=== PATIENT | female | born 1965 | race Caucasian/White ===

== ENCOUNTER 2019-06-27 13:59 | Emergency (ER) | payer BC ==
[2019-06-27 14:24] VITALS: BP 125/83; PULSE 86; TEMP 98.3; BMI 20.7
[2019-06-27] MEDS ORDERED: predniSONE 20 MG TABLET (UD) PO ONE (14:32)
--- NOTE | 2019-06-27 14:37 | PDOC ---
History of Present Illness - General Chief Complaint: Allergic Reaction Stated Complaint: ALLERGIC REACTION Time Seen by Provider: 06/27/19 14:03 History Source: Patient Exam Limitations: No Limitations - History of Present Illness Initial Comments: 06/27/19 14:37 54 yo female pmh anaphylaxis to unknown allergen presents to ED with congestion , itchy throat and GI upset 1 hour after desensitization injection by civil engineering drafter. Pt states this is her 4th anaphylactic rxn and has required epi in the past for the same symptoms. Pt had desensitization shot around 11 am and began showing symptoms around 12. Pt took 25 mg Benadryl and used her epipen with improvement of her symptoms and now only admits to mild congestion. Pt denies having SOB, tongue or lip swelling, drooling confusion, CP, rash. Past History - Past Medical History Allergies/Adverse Reactions: Allergies Allergy/AdvReac Type Severity Reaction Status Date / Time grass pollen Allergy Verified 06/27/19 14:00 tree nut Allergy Verified 06/27/19 14:00 DUST MITES Allergy Uncoded 06/27/19 14:00 Home Medications: Ambulatory Orders EPINEPHrine (EPI-PEN 0.3MG) [Epipen 0.3MG -] 0.3 mg IM ASDIR 06/27/19 EPINEPHrine (EPI-PEN 0.3MG) [Epipen 0.3MG -] 0.3 mg IM ASDIR #2 pens 06/27/19 predniSONE [Deltasone -] 40 mg PO DAILY #3 tablet 06/27/19 COPD: No - Psycho Social/Smoking Cessation Hx Smoking History: Never smoked Information on smoking cessation initiated: No Hx Alcohol Use: No Drug/Substance Use Hx: No Review of Systems - Review of Systems Constitutional: No: Chills, Fever HEENTM: Yes: Other (itchy throat). No: Throat Swelling Respiratory: Yes: Other (congestion). No: Shortness of Breath Cardiac (ROS): No: Chest Pain, Edema ABD/GI: Yes: Diarrhea. No: Nausea, Vomiting : No: Burning, Dysuria, Frequency, Flank Pain Integumentary: Yes: Other (swelling and redness to location of injection). No: Rash *Physical Exam - Vital Signs Last Vital Signs Temp Pulse Resp BP Pulse Ox 98.3 F 86 20 125/83 98 06/27/19 13:59 06/27/19 13:59 06/27/19 13:59 06/27/19 13:59 06/27/19 13:59 Discharge - Discharge Information Problems reviewed: Yes Clinical Impression/Diagnosis: Anaphylaxis Condition: Improved Disposition: HOME - Admission No - Follow up/Referral - Patient Discharge Instructions Patient Printed Discharge Instructions: DI for Anaphylaxis, Epinephrine Injection Additional Instructions: Please see your civil engineering drafter and primary doctor within the next 48 hours. instructional support technician a refill on your epi pen and steroids from youre pharmacy. Use the steroids once a day for the next 3 days. For further anaphylactic reactions, make sure to use your epipen and head straight to an emergency room. Return to the ER for new or concerning symptoms including but not limited to: further anaphylactic reactions, difficulty breathing, tongue swelling, drooling. Thank you - Post Discharge Activity
--- NOTE | 2019-06-27 14:38 | PDOC ---
Attending Attestation - Resident Resident Name: Adolph Dao - ED Attending Attestation I have performed the following: I have examined & evaluated the patient, The case was reviewed & discussed with the resident, I agree w/resident's findings & plan, Exceptions are as noted - HPI HPI: 06/27/19 14:35 54 F with no PMH presents to ED for allergic reaction. Pt was receiving allergy shots (has pollen allergy) today. About an hour after her injection, she developed hoarseness in her voice, diarrhea, and lightheadedness. Pt states that she has had multiple similar reactions in the past, usually in the setting of receiving her allergy shots. Pt self-administered epi-pen and took benadryl with subsequent resolution of her symptoms. She now has no complaints. - Physicial Exam PE: 06/27/19 14:37 "GENERAL: Awake, alert, and fully oriented, in no acute distress. HEAD: No signs of trauma EYES: PERRLA, EOMI, sclera anicteric, conjunctiva clear ENT: Auricles normal inspection, hearing grossly normal, nares patent, oropharynx clear without exudates. Moist mucosa NECK: Nontender, no stepoffs, Normal ROM, supple, no lymphadenopathy, JVD, or masses LUNGS: Breath sounds equal, clear to auscultation bilaterally. No wheezes, and no crackles HEART: Regular rate and rhythm, normal S1 and S2, no murmurs, rubs or gallops ABDOMEN: Soft, nontender, normoactive bowel sounds. No guarding, no rebound. No masses EXTREMITIES: Normal range of motion, no edema. No clubbing or cyanosis. No cords, erythema, or tenderness NEUROLOGICAL: Cranial nerves II through XII intact. 5/5 strength and sensation in all extremities, Normal speech, normal gait, normal cerebellar function SKIN: Warm, Dry, normal turgor, no rashes or lesions noted. - Medical Decision Making 06/27/19 14:37 54 F with allergic reaction while receiving allergy shots. Symptoms at this time completely resolved. No evidence of airway compromise. Vitals stable. 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 Clinically stable for DC at this time. I discussed the physical exam findings, ancillary test results and final diagnoses with the patient. I answered all of the patient's questions. The patient was satisfied with the care received and felt comfortable with the discharge plan and treatment plan. The patient agrees to follow up with the primary care physician within 24-72 hours.
[2019-06-27] MEDS ORDERED: predniSONE 20 MG TABLET (UD) ONE (14:46)
== END 2019-06-27 14:51 | disposition home or self-care (01) ==
LOC: FER 13:59
DX: T78.2XXA Anaphylactic shock, unspecified, initial encounter (principal); J30.1 Allergic rhinitis due to pollen; Z91.09 Other allergy status, other than to drugs and biological substances; Z91.018 Allergy to other foods
CPT/HCPCS: 99281-25